=== PATIENT | male | born 1960 | race Caucasian/White ===

== ENCOUNTER 2018-12-28 18:10 | Emergency (ER) | payer OTHER ==
[~2018-12-28] VITALS: Ht 170.2 cm; Wt 89.4 kg
[2018-12-28 18:24] VITALS: Ht 170.2 cm; Wt 89.4 kg
[2018-12-28 18:55] LABS: BASOPHIL % 0.3 % (0-2); PLATELET COUNT 223 x10^3mcL (130-400); RED CELL DISTRIBUTION WIDTH 13.7 % (11.5-14.5)
[2018-12-28 19:14] LABS: CALCIUM 8.8 mg/dL (8.5-10.1); CARBON DIOXIDE 33.9 mmol/L (21-32); CREATININE SERUM 1.4 mg/dL (0.7-1.3); POTASSIUM SERUM 4.4 mmol/L (3.5-5.1)
[2018-12-28 19:18] LABS: ALBUMIN 3.8 g/dL (3.4-5.0); BILIRUBIN TOTAL 0.92 mg/dL (0.20-1.00); TOTAL PROTEIN, SERUM 7.6 g/dL (6.4-8.2)
[2018-12-28 21:46] VITALS: BP 156/86
== END 2018-12-28 21:46 | disposition home or self-care (01) ==
LOC: ED 18:10
PROVIDERS: Emergency Medicine
DX: K76.0 Fatty (change of) liver, not elsewhere classified (principal); E11.9 Type 2 diabetes mellitus without complications; I10 Essential (primary) hypertension

== ENCOUNTER 2020-02-06 17:25 | Inpatient (IN) | payer OTHER ==
[~2020-02-06] VITALS: Ht 170.2 cm; Wt 87.1 kg
[2020-02-06 20:53] LABS: BASOPHIL % 0.4 % (0.2-1.5); PLATELET COUNT 189 x10^3mcL (152-348); RED CELL DISTRIBUTION WIDTH 13.1 % (12.1-16.2)
[2020-02-06 20:57] LABS: CALCIUM 7.8 mg/dL (8.5-10.1); CARBON DIOXIDE 24.5 mmol/L (21-32); CREATININE SERUM 1.8 mg/dL (0.7-1.3); POTASSIUM SERUM 3.9 mmol/L (3.5-5.1)
[2020-02-06 20:58] LABS: rbc morphology (normal/abnorm) NORMAL (NORMAL)
[2020-02-06 21:02] LABS: BILIRUBIN TOTAL 0.9 mg/dL (0.20-1.00); TOTAL PROTEIN, SERUM 7.1 g/dL (6.4-8.2)
[2020-02-06 21:06] LABS: ALBUMIN 2.9 g/dL (3.4-5.0)
[2020-02-06 21:37] LABS: C REACTIVE PROTEIN 33.7 mg/dL (<=0.9)
[2020-02-07 06:11] LABS: UA SPECIFIC GRAVITY >=1.030 (1.005-1.035); microscopic required? YES; urine erythrocyte NEGATIVE (NEGATIVE)
[2020-02-07 07:20] LABS: BASOPHIL % 0.1 % (0.2-1.5); PLATELET COUNT 181 x10^3mcL (152-348); RED CELL DISTRIBUTION WIDTH 13.3 % (12.1-16.2)
[2020-02-07 08:43] LABS: CHOLESTEROL/HDL RATIO 5.5
[2020-02-07 22:52] LABS: rbc morphology (normal/abnorm) NORMAL (NORMAL)
[2020-02-08 07:52] LABS: BASOPHIL % 0.1 % (0.2-1.5); PLATELET COUNT 217 x10^3mcL (152-348); RED CELL DISTRIBUTION WIDTH 13.3 % (12.1-16.2)
[2020-02-08 07:56] LABS: BILIRUBIN DIRECT 0.46 mg/dL (0.0-0.2); BILIRUBIN TOTAL 1.17 mg/dL (0.20-1.00); TOTAL PROTEIN, SERUM 6.6 g/dL (6.4-8.2)
[2020-02-08 07:58] LABS: ALBUMIN 2.4 g/dL (3.4-5.0)
[2020-02-08 08:12] VITALS: BP 136/74
[2020-02-08 10:50] LABS: rbc morphology (normal/abnorm) NORMAL (NORMAL)
[2020-02-08 18:02] VITALS: BP 134/76
[2020-02-08 21:40] VITALS: BP 124/76
[2020-02-09 06:00] VITALS: BP 91/56
[2020-02-09 09:03] VITALS: BP 123/71
[2020-02-09 11:52] VITALS: BP 135/84
[2020-02-09 16:26] VITALS: BP 130/85
[2020-02-09 20:52] VITALS: BP 155/73
[2020-02-10 04:55] VITALS: BP 149/59
[2020-02-10 08:21] LABS: PLATELET COUNT 265 x10^3mcL (152-348); RED CELL DISTRIBUTION WIDTH 13.5 % (12.1-16.2)
[2020-02-10 09:25] LABS: BILIRUBIN DIRECT 0.38 mg/dL (0.0-0.2); BILIRUBIN TOTAL 0.83 mg/dL (0.20-1.00)
[2020-02-10 09:29] LABS: ALBUMIN 2.3 g/dL (3.4-5.0); TOTAL PROTEIN, SERUM 6.1 g/dL (6.4-8.2)
[2020-02-10 09:56] VITALS: BP 135/87
[2020-02-10 13:04] VITALS: BP 122/73
[2020-02-10 13:36] LABS: BASOPHIL 0 % (0-2); MONOCYTE 8 % (0-7); SEGMENTED NEUTROPHILS 86 % (37-75)
[2020-02-10 16:37] VITALS: BP 123/70
[2020-02-10 20:25] VITALS: BP 142/92
[2020-02-11 05:49] VITALS: BP 158/91
[2020-02-11 08:20] LABS: BASOPHIL % 0.1 % (0.2-1.5); PLATELET COUNT 286 x10^3mcL (152-348); RED CELL DISTRIBUTION WIDTH 13.7 % (12.1-16.2)
[2020-02-11 08:38] LABS: BILIRUBIN DIRECT 0.31 mg/dL (0.0-0.2); BILIRUBIN TOTAL 0.76 mg/dL (0.20-1.00); TOTAL PROTEIN, SERUM 6.4 g/dL (6.4-8.2)
[2020-02-11 08:40] LABS: ALBUMIN 2.2 g/dL (3.4-5.0)
[2020-02-11 08:46] VITALS: BP 138/83
[2020-02-11 09:12] LABS: rbc morphology (normal/abnorm) NORMAL (NORMAL)
[2020-02-11 11:31] VITALS: BP 137/80
[2020-02-11 16:34] VITALS: BP 131/84
[2020-02-11 20:15] VITALS: BP 141/65
[2020-02-12 06:25] VITALS: BP 146/77
[2020-02-12 08:07] VITALS: BP 141/87
[2020-02-12 12:05] VITALS: BP 123/78
[2020-02-12 17:04] VITALS: BP 124/83
[2020-02-12 21:28] VITALS: BP 133/67
[2020-02-13 05:56] VITALS: BP 136/76
[2020-02-13 07:30] VITALS: BP 124/78
[2020-02-13 08:00] VITALS: BP 99/68
[2020-02-13 12:51] VITALS: BP 129/86
[2020-02-13 18:09] VITALS: BP 136/77
[2020-02-13 20:45] VITALS: BP 134/77
[2020-02-14 05:38] VITALS: BP 144/81
[2020-02-14 09:15] VITALS: BP 130/73
[2020-02-14 12:39] VITALS: BP 125/69
[2020-02-14 16:49] VITALS: BP 128/83
[2020-02-14 21:33] VITALS: BP 140/84
[2020-02-15 05:49] VITALS: BP 134/76
[2020-02-15 09:20] VITALS: BP 92/55
[2020-02-15 12:59] VITALS: BP 112/75
[2020-02-15 16:43] LABS: BASOPHIL % 0.5 % (0.2-1.5); PLATELET COUNT 249 x10^3mcL (152-348); RED CELL DISTRIBUTION WIDTH 13.3 % (12.1-16.2)
[2020-02-15 16:54] LABS: ALKALINE PHOSPHATASE 66 U/L (46-116); ALT/SGPT 44 U/L (16-63); AST/SGOT 24 U/L (15-37); BILIRUBIN TOTAL 0.9 mg/dL (0.20-1.00); CALCIUM 8.3 mg/dL (8.5-10.1); CARBON DIOXIDE 27.5 mmol/L (21-32); CHLORIDE SERUM 104 mmol/L (98-107); CREATININE SERUM 0.9 mg/dL (0.7-1.3); GFR1 > 60 mL/min; GLUCOSE SERUM 273 mg/dL (74-106); POTASSIUM SERUM 5.1 mmol/L (3.5-5.1); SODIUM SERUM 139 mmol/L (136-145); TOTAL PROTEIN, SERUM 6.6 g/dL (6.4-8.2)
[2020-02-15 17:01] LABS: ALBUMIN 2.3 g/dL (3.4-5.0)
[2020-02-15 17:24] VITALS: BP 128/88
[2020-02-15 17:30] LABS: rbc morphology (normal/abnorm) NORMAL (NORMAL)
[2020-02-15 20:42] LABS: BASOPHIL % 0.5 % (0.2-1.5); PLATELET COUNT 243 x10^3mcL (152-348); RED CELL DISTRIBUTION WIDTH 13.6 % (12.1-16.2)
[2020-02-15 21:14] LABS: ALKALINE PHOSPHATASE 66 U/L (46-116); ALT/SGPT 45 U/L (16-63); AST/SGOT 26 U/L (15-37); CALCIUM 8.3 mg/dL (8.5-10.1); CARBON DIOXIDE 30.5 mmol/L (21-32); CHLORIDE SERUM 104 mmol/L (98-107); GFR1 > 60 mL/min; GLUCOSE SERUM 299 mg/dL (74-106); POTASSIUM SERUM 4.9 mmol/L (3.5-5.1); SODIUM SERUM 140 mmol/L (136-145); TOTAL PROTEIN, SERUM 6.5 g/dL (6.4-8.2)
[2020-02-15 21:28] LABS: ALBUMIN 2.3 g/dL (3.4-5.0)
[2020-02-16 06:54] VITALS: BP 136/77
[2020-02-16 09:40] VITALS: BP 108/66
[2020-02-16 13:48] VITALS: BP 123/76
[2020-02-16 14:06] LABS: BASOPHIL % 0.8 % (0.2-1.5); PLATELET COUNT 246 x10^3mcL (152-348); RED CELL DISTRIBUTION WIDTH 13.3 % (12.1-16.2)
[2020-02-16 14:29] LABS: rbc morphology (normal/abnorm) NORMAL (NORMAL)
[2020-02-16 15:05] LABS: ALKALINE PHOSPHATASE 60 U/L (46-116); ALT/SGPT 51 U/L (16-63); AST/SGOT 32 U/L (15-37); BILIRUBIN TOTAL 1.15 mg/dL (0.20-1.00); CALCIUM 8.3 mg/dL (8.5-10.1); CARBON DIOXIDE 29.1 mmol/L (21-32); CHLORIDE SERUM 103 mmol/L (98-107); CREATININE SERUM 0.9 mg/dL (0.7-1.3); GFR1 > 60 mL/min; GLUCOSE SERUM 264 mg/dL (74-106); POTASSIUM SERUM 4.8 mmol/L (3.5-5.1); SODIUM SERUM 138 mmol/L (136-145); TOTAL PROTEIN, SERUM 6.6 g/dL (6.4-8.2)
[2020-02-16 15:06] LABS: ALBUMIN 2.3 g/dL (3.4-5.0)
[2020-02-16 17:25] VITALS: BP 130/75
[2020-02-16 18:38] VITALS: Ht 170.2 cm; Wt 87.1 kg
[2020-02-16 21:40] VITALS: BP 136/76
[2020-02-17 06:10] VITALS: BP 133/86
[2020-02-17 08:49] VITALS: BP 132/86
[2020-02-17 12:52] VITALS: BP 126/66
[2020-02-17 16:23] VITALS: BP 130/81
[2020-02-17 21:15] VITALS: BP 135/79
[2020-02-18 05:50] VITALS: BP 150/80
[2020-02-18 07:51] LABS: PLATELET COUNT 247 x10^3mcL (152-348); RED CELL DISTRIBUTION WIDTH 12.9 % (12.1-16.2)
[2020-02-18 08:30] LABS: ALBUMIN 2.6 g/dL (3.4-5.0); ALKALINE PHOSPHATASE 65 U/L (46-116); ALT/SGPT 80 U/L (16-63); AST/SGOT 41 U/L (15-37); BILIRUBIN TOTAL 1.3 mg/dL (0.20-1.00); CALCIUM 8.4 mg/dL (8.5-10.1); CARBON DIOXIDE 30.8 mmol/L (21-32); CHLORIDE SERUM 103 mmol/L (98-107); CREATININE SERUM 0.9 mg/dL (0.7-1.3); GFR1 > 60 mL/min; GLUCOSE SERUM 102 mg/dL (74-106); POTASSIUM SERUM 4.3 mmol/L (3.5-5.1); SODIUM SERUM 141 mmol/L (136-145); TOTAL PROTEIN, SERUM 6.9 g/dL (6.4-8.2)
[2020-02-18 09:31] VITALS: BP 138/84
[2020-02-18 09:48] LABS: BASOPHIL % 0 % (0.2-1.5)
[2020-02-18 11:43] VITALS: BP 121/87
[2020-02-18 17:58] VITALS: BP 132/84
[2020-02-18 21:40] VITALS: BP 129/78
[2020-02-19 06:14] VITALS: BP 128/80
[2020-02-19 10:03] VITALS: BP 115/78
[2020-02-19 13:39] LABS: ALKALINE PHOSPHATASE 66 U/L (46-116); ALT/SGPT 107 U/L (16-63); AST/SGOT 56 U/L (15-37); BILIRUBIN TOTAL 1.3 mg/dL (0.20-1.00); CALCIUM 8.4 mg/dL (8.5-10.1); CARBON DIOXIDE 28.8 mmol/L (21-32); CHLORIDE SERUM 98 mmol/L (98-107); CREATININE SERUM 0.8 mg/dL (0.7-1.3); GFR1 > 60 mL/min; GLUCOSE SERUM 165 mg/dL (74-106); POTASSIUM SERUM 3.8 mmol/L (3.5-5.1); SODIUM SERUM 136 mmol/L (136-145); TOTAL PROTEIN, SERUM 6.6 g/dL (6.4-8.2)
[2020-02-19 13:51] LABS: ALBUMIN 2.4 g/dL (3.4-5.0)
[2020-02-19 13:52] LABS: BASOPHIL % 0.3 % (0.2-1.5); PLATELET COUNT 250 x10^3mcL (152-348); RED CELL DISTRIBUTION WIDTH 13.1 % (12.1-16.2)
[2020-02-19 14:27] VITALS: BP 116/85
[2020-02-19 17:40] VITALS: BP 115/72
[2020-02-19 22:07] VITALS: BP 117/71
[2020-02-20 06:03] VITALS: BP 121/72
[2020-02-20 08:53] VITALS: BP 127/76
[2020-02-20 09:46] LABS: BASOPHIL % 0.4 % (0.2-1.5); PLATELET COUNT 233 x10^3mcL (152-348); RED CELL DISTRIBUTION WIDTH 13.2 % (12.1-16.2)
[2020-02-20 10:06] LABS: ALKALINE PHOSPHATASE 64 U/L (46-116); ALT/SGPT 108 U/L (16-63); AST/SGOT 46 U/L (15-37); BILIRUBIN TOTAL 1.3 mg/dL (0.20-1.00); CALCIUM 8.2 mg/dL (8.5-10.1); CARBON DIOXIDE 27.4 mmol/L (21-32); CHLORIDE SERUM 99 mmol/L (98-107); GLUCOSE SERUM 109 mg/dL (74-106); POTASSIUM SERUM 3.6 mmol/L (3.5-5.1); SODIUM SERUM 136 mmol/L (136-145); TOTAL PROTEIN, SERUM 6.3 g/dL (6.4-8.2)
[2020-02-20 10:12] LABS: ALBUMIN 2.3 g/dL (3.4-5.0)
[2020-02-20 11:00] LABS: rbc morphology (normal/abnorm) NORMAL (NORMAL)
[2020-02-20 11:03] LABS: CREATININE SERUM 0.8 mg/dL (0.7-1.3); GFR1 > 60 mL/min
[2020-02-20 12:17] VITALS: BP 118/75
[2020-02-20 12:49] LABS: BASOPHIL % 0.6 % (0.2-1.5); PLATELET COUNT 287 x10^3mcL (152-348); RED CELL DISTRIBUTION WIDTH 13.1 % (12.1-16.2)
[2020-02-20 13:01] LABS: rbc morphology (normal/abnorm) NORMAL (NORMAL)
[2020-02-20 13:15] LABS: ALKALINE PHOSPHATASE 70 U/L (46-116); ALT/SGPT 117 U/L (16-63); AST/SGOT 44 U/L (15-37); BILIRUBIN TOTAL 1.31 mg/dL (0.20-1.00); CALCIUM 7.9 mg/dL (8.5-10.1); CARBON DIOXIDE 28.3 mmol/L (21-32); CHLORIDE SERUM 102 mmol/L (98-107); CREATININE SERUM 0.8 mg/dL (0.7-1.3); GFR1 > 60 mL/min; GLUCOSE SERUM 177 mg/dL (74-106); POTASSIUM SERUM 3.8 mmol/L (3.5-5.1); SODIUM SERUM 138 mmol/L (136-145); TOTAL PROTEIN, SERUM 6.6 g/dL (6.4-8.2)
[2020-02-20 13:22] LABS: ALBUMIN 2.4 g/dL (3.4-5.0)
[2020-02-20 18:07] VITALS: BP 118/82
[2020-02-20 21:47] VITALS: BP 121/81
[2020-02-21 06:08] VITALS: BP 122/71
[2020-02-21 08:45] LABS: BASOPHIL % 0.3 % (0.2-1.5); PLATELET COUNT 250 x10^3mcL (152-348); RED CELL DISTRIBUTION WIDTH 13.4 % (12.1-16.2)
[2020-02-21 09:20] LABS: ALKALINE PHOSPHATASE 70 U/L (46-116); ALT/SGPT 120 U/L (16-63); AST/SGOT 44 U/L (15-37); BILIRUBIN TOTAL 1.2 mg/dL (0.20-1.00); CALCIUM 8.5 mg/dL (8.5-10.1); CARBON DIOXIDE 28.2 mmol/L (21-32); CHLORIDE SERUM 96 mmol/L (98-107); CREATININE SERUM 0.9 mg/dL (0.7-1.3); GFR1 > 60 mL/min; GLUCOSE SERUM 118 mg/dL (74-106); POTASSIUM SERUM 3.4 mmol/L (3.5-5.1); SODIUM SERUM 135 mmol/L (136-145); TOTAL PROTEIN, SERUM 6.8 g/dL (6.4-8.2)
[2020-02-21 09:39] VITALS: BP 121/80
[2020-02-21 09:39] LABS: ALBUMIN 2.6 g/dL (3.4-5.0)
[2020-02-21 13:20] VITALS: BP 119/71
[2020-02-21 15:22] LABS: rbc morphology (normal/abnorm) NORMAL (NORMAL)
[2020-02-21 17:31] VITALS: BP 118/77
[2020-02-21 21:56] VITALS: BP 119/70
[2020-02-22 06:49] VITALS: BP 113/69
[2020-02-22 08:18] LABS: BASOPHIL % 0.7 % (0.2-1.5); PLATELET COUNT 258 x10^3mcL (152-348); RED CELL DISTRIBUTION WIDTH 13.3 % (12.1-16.2)
[2020-02-22 08:52] LABS: ALKALINE PHOSPHATASE 62 U/L (46-116); ALT/SGPT 111 U/L (16-63); AST/SGOT 42 U/L (15-37); BILIRUBIN TOTAL 1.2 mg/dL (0.20-1.00); CALCIUM 8.2 mg/dL (8.5-10.1); CARBON DIOXIDE 30.9 mmol/L (21-32); CHLORIDE SERUM 99 mmol/L (98-107); GFR1 > 60 mL/min; GLUCOSE SERUM 130 mg/dL (74-106); POTASSIUM SERUM 4.1 mmol/L (3.5-5.1); SODIUM SERUM 134 mmol/L (136-145); TOTAL PROTEIN, SERUM 6.2 g/dL (6.4-8.2)
[2020-02-22 09:04] LABS: ALBUMIN 2.3 g/dL (3.4-5.0)
[2020-02-22 10:19] VITALS: BP 124/78
[2020-02-22 13:39] VITALS: BP 118/81
[2020-02-22 22:21] VITALS: BP 100/55
[2020-02-23 06:41] VITALS: BP 114/64
[2020-02-23 08:34] LABS: BASOPHIL % 0.4 % (0.2-1.5); PLATELET COUNT 257 x10^3mcL (152-348); RED CELL DISTRIBUTION WIDTH 13.2 % (12.1-16.2)
[2020-02-23 09:46] VITALS: BP 120/74
[2020-02-23 09:58] LABS: ALKALINE PHOSPHATASE 58 U/L (46-116); ALT/SGPT 118 U/L (16-63); AST/SGOT 39 U/L (15-37); CALCIUM 8.2 mg/dL (8.5-10.1); CARBON DIOXIDE 29.3 mmol/L (21-32); CHLORIDE SERUM 98 mmol/L (98-107); CREATININE SERUM 0.8 mg/dL (0.7-1.3); GFR1 > 60 mL/min; GLUCOSE SERUM 116 mg/dL (74-106); POTASSIUM SERUM 3.8 mmol/L (3.5-5.1); SODIUM SERUM 134 mmol/L (136-145)
[2020-02-23 10:07] LABS: ALBUMIN 2.5 g/dL (3.4-5.0); TOTAL PROTEIN, SERUM 6.1 g/dL (6.4-8.2)
[2020-02-23 13:01] LABS: rbc morphology (normal/abnorm) NORMAL (NORMAL)
[2020-02-23 14:20] VITALS: BP 109/77
[2020-02-23 17:15] VITALS: BP 119/74
[2020-02-23 22:12] VITALS: BP 103/65
[2020-02-24 06:29] VITALS: BP 107/62
[2020-02-24 08:35] LABS: BASOPHIL % 0.3 % (0.2-1.5); PLATELET COUNT 224 x10^3mcL (152-348); RED CELL DISTRIBUTION WIDTH 13.1 % (12.1-16.2)
[2020-02-24 08:46] LABS: ALKALINE PHOSPHATASE 61 U/L (46-116); ALT/SGPT 108 U/L (16-63); AST/SGOT 36 U/L (15-37); BILIRUBIN TOTAL 1.02 mg/dL (0.20-1.00); CALCIUM 8.3 mg/dL (8.5-10.1); CARBON DIOXIDE 28.8 mmol/L (21-32); CHLORIDE SERUM 99 mmol/L (98-107); CREATININE SERUM 0.8 mg/dL (0.7-1.3); GFR1 > 60 mL/min; GLUCOSE SERUM 132 mg/dL (74-106); POTASSIUM SERUM 3.7 mmol/L (3.5-5.1); SODIUM SERUM 134 mmol/L (136-145); TOTAL PROTEIN, SERUM 6.2 g/dL (6.4-8.2)
[2020-02-24 08:53] LABS: ALBUMIN 2.5 g/dL (3.4-5.0)
[2020-02-24 10:05] VITALS: BP 104/77
[2020-02-24 13:48] LABS: rbc morphology (normal/abnorm) NORMAL (NORMAL)
[2020-02-24 14:50] VITALS: BP 133/83
[2020-02-24 18:20] VITALS: BP 135/83
[2020-02-24 21:51] VITALS: BP 123/87
[2020-02-25 06:43] VITALS: BP 124/87
[2020-02-25 09:27] VITALS: BP 122/73
[2020-02-25] MEDS ORDERED: VENTOLIN H0.09 MG/A1 INH (12:01)
[2020-02-25] MEDS ORDERED: ELIQUIS5 MG PO (12:01)
[2020-02-25] MEDS ORDERED: LISINOPRIL-HYDR1 TA3 PO (12:02)
[2020-02-25] MEDS ORDERED: METFORMIN ER500 M1 PO (12:02)
[2020-02-25] MEDS ORDERED: DECADRON4 MG PO (12:03)
[2020-02-25 12:28] VITALS: BP 114/80
[2020-02-25 14:04] VITALS: BP 114/80
[2020-02-25 16:57] VITALS: BP 134/80
== END 2020-02-25 20:48 | disposition home health service (06) | DRG 137 ==
LOC: ED 17:25 → DU 20:04
PROVIDERS: Student in an Organized Health Care Education/Training Program; ADMIT Hospitalist; ATTEND Hospitalist
PROC: XW033E5 Introduction of Remdesivir Anti-infective into Peripheral Vein, Percutaneous Approach, New Technology Group 5 (ICD-10-PCS; 2020-02-07)
PROC: 5A09357 Assistance with Respiratory Ventilation, Less than 24 Consecutive Hours, Continuous Positive Airway Pressure (ICD-10-PCS; 2020-02-13)
PROC: XW13325 Transfusion of Convalescent Plasma (Nonautologous) into Peripheral Vein, Percutaneous Approach, New Technology Group 5 (ICD-10-PCS; principal; 2020-02-16)
DX: U07.1 COVID-19 (principal); J96.01 Acute respiratory failure with hypoxia; J12.82 Pneumonia due to coronavirus disease 2019; I10 Essential (primary) hypertension; I69.351 Hemiplegia and hemiparesis following cerebral infarction affecting right dominant side; Z83.3 Family history of diabetes mellitus; Z82.49 Family history of ischemic heart disease and other diseases of the circulatory system; E11.65 Type 2 diabetes mellitus with hyperglycemia
CPT/HCPCS: 36600; 82962; 83880; 85378; 87804; 97110-GP; 97112-GP; G0378; J0456; J0696; J1100; J1644; J1815; J1940; J3535; J7040; J7050; J7060; J7626; U0003